=== PATIENT | male | born 1950 | race Caucasian/White ===

== ENCOUNTER → 2023-06-02 16:24 | Outpatient (REF) | payer MEDICARE, OTHER, SELFPAY | LOC: MRI 3T 16:24 | PROVIDERS: ATTENDING PHYSICIAN Physical Medicine & Rehabilitation; FAMILY PHYSICIAN Family Medicine | DX: M25.551 Pain in right hip (principal) | CPT/HCPCS: 73721 ==

== ENCOUNTER → 2023-06-03 07:56 | Outpatient (REF) | payer MEDICARE, OTHER, SELFPAY | LOC: MRI 3T 07:56 | PROVIDERS: ATTENDING PHYSICIAN Physical Medicine & Rehabilitation; FAMILY PHYSICIAN Family Medicine | DX: M54.16 Radiculopathy, lumbar region (principal) | CPT/HCPCS: 72148 ==

== ENCOUNTER → 2023-10-15 10:35 | Outpatient (REF) | payer MEDICARE, OTHER, SELFPAY | LOC: RAD 10:35 | PROVIDERS: ATTENDING PHYSICIAN Family Medicine; FAMILY PHYSICIAN Family Medicine | DX: R07.81 Pleurodynia (principal) | CPT/HCPCS: 71101 ==

== ENCOUNTER → 2023-12-16 15:42 | Outpatient (REF) | payer MEDICARE, OTHER, SELFPAY | LOC: RCS 15:42 | PROVIDERS: ATTENDING PHYSICIAN Internal Medicine Cardiovascular Disease; FAMILY PHYSICIAN Family Medicine | DX: I25.10 Atherosclerotic heart disease of native coronary artery without angina pectoris (principal); I77.810 Thoracic aortic ectasia | CPT/HCPCS: 93306 ==

== ENCOUNTER 2024-02-21 14:39 | Emergency (ER) | payer MEDICARE, OTHER, SELFPAY ==
[2024-02-21 14:44] VITALS: BP 137/72
--- NOTE | 2024-02-21 15:21 | ED.GENMED ---
History of Present Illness
General
Chief Complaint: Musculo-Skeletal Complaint
Time Seen by Provider: 02/21/24 14:55
History of Present Illness
History of Present Illness:
Patient is a 73-year-old man with history of knee replacement [place] [address] Holder presenting to the emergency department left knee pain. Patient states the past 2 days he had a dull ache and then overnight had a sharp sudden worsening pain that
is behind his knee as well as the top of the knee. He is having difficulty ambulating and having to use a walker. He is taking naproxen which has been helping. No numbness tingling. No trauma. No falls. No fevers or chills.
Past History
Past History
ED Past Medical History: None; Negative Asthma, HTN, Hypercholesterolemia or NIDDM
ED Past Surgical History: Orthopedic (L knee replacement, R and L shoulder surg,); Negative Appendectomy, Bowel resection, Cardiac or Cholecystectomy
Social History
Tobacco: Non-smoker
Alcohol: Occasional
Drug: None
Personal:
Living: with family
Employment: Employed
Family History
Family History: Other (Diverticulitis)
Phy Exam
Physical Exam
Physical Exam:
GENERAL: in no acute distress
HEENT: normocephalic, extraocular movements intact, moist oral mucosa
NECK: normal inspection
RESPIRATORY: no respiratory distress, clear to auscultation bilaterally
CARDIOVASCULAR: regular rate and rhythm
ABDOMEN/: soft, non-distended, non-tender to palpation, no rebound or guarding
EXTREMITIES: Tenderness over proximal fibula with associated swelling, no erythema, full range of motion of the knee 2+ distal pulse
NEUROLOGIC: awake and alert, moves all extremities
SKIN: warm
Course
Orders/Labs/Results
Orders:
Orders
02/21/24 14:50
CR Knee - Left 4 Or More View* Urgent
Comment:
Reason For Exam: pain
02/21/24 16:14
Knee Immobilizer Left-Treatmen ONCE
Acetaminophen [Tylenol] 1,000 mg PO NOW STA
Vital Signs
Initial and Last Documented VS:
Initial Vital Signs
Pulse Resp BP Pulse Ox
75 16 137/72 99
02/21/24 14:44 02/21/24 14:44 02/21/24 14:44 02/21/24 14:44
Last Documented Vital Signs
Pulse Resp BP Pulse Ox
75 16 137/72 99
02/21/24 14:44 02/21/24 14:44 02/21/24 14:44 02/21/24 14:44
MDM/Problems Addressed
Differential Diagnosis Includes:
Patient is a 73-year-old male with knee replacement in 2002 present to the emergency department with atraumatic left knee pain for the past 2 days. Vitals unremarkable exam does show tenderness to palpation over the proximal fibula with associated
swelling. Pulses are intact and he is otherwise neurovascularly intact. Concern for fracture or complication with the prosthetic joint. History and exam not consistent with vascular etiology or septic arthritis. Will obtain x-ray. He remains
ambulatory while here in the ED
*Critical Care Note
Total Time (30-74mins, 75-104mins- exclusive of procedures): Not Applicable
Update Note
Update Note:
X-ray per my interpretation with no acute fractures or of the prosthetic knee joint. On evaluation patient knee remains slightly swollen but no erythema or warmth to suggest septic joint. Patient placed in knee immobilizer. Strict return
precautions given. They will call [facility] office for an appointment on Friday
ED Attending Note
-
Portions of this chart may have been created with voice recognition software.� Occasional wrong word or��sound alike� substitutions may have occurred due to the inherent limitations of voice recognition software.
Discharge Plan
Departure
Patient Disposition: Home (Routine Discharge)
Date of Disposition: 02/21/24
Time of Disposition: 16:15
Patient with high blood pressure during this ER visit?: No
Discharge Problem:
Acute knee pain
Instructions: Knee Immobilizer (DC)
Prescriptions:
No Action
cetirizine [Zyrtec] 10 mg Tablet
10 mg PO HS
therapeutic multivitamin Tablet
1 tab PO DAILY
fexofenadine 180 mg Tablet
180 mg PO DAILY
ascorbic acid (vitamin C) 500 mg Tablet
500 mg PO DAILY
levothyroxine 50 mcg tablet
50 mcg PO DAILY AT 0700
naproxen sodium [Aleve] 220 mg Tablet
220 - 440 mg PO BID PRN (Reason: pain)
fluticasone propionate 50 mcg/actuation [place],Suspension
1 spray INTRANASAL BID
omega 2-izy-qin-fish oil [Fish Oil] 1,200 (144-216) mg Capsule
1 cap PO DAILY
turmeric root extract 500 mg Capsule
1,000 mg PO DAILY
Prevagen
1 cap PO DAILY
zolpidem 5 mg tablet
5 mg PO HSPRN PRN (Reason: severe insomnia)
melatonin 5 mg Tablet
5 mg PO HS PRN (Reason: insomnia)
Referrals:
Qamar Lakhani MD [Family Provider] -
Galindo Holder MD [Active] -
Interventions
Interventions:
*Risk Screen - Suicide Last Done: 02/21/24 14:44
*General Assessment Last Done: 02/21/24 14:44
*ED COVID-19 Vaccine History Last Done: 02/21/24 14:44
Discharge Date and Time
Print Language: MALAY
[2024-02-21 16:00] VITALS: BP 132/78
[2024-02-21] MEDS: TYLENOL 1000 MG PO (16:28)
== END 2024-02-21 17:20 | disposition home or self-care (01) ==
LOC: EMR 14:39
PROVIDERS: EMERGENCY PHYSICIAN Student in an Organized Health Care Education/Training Program; FAMILY PHYSICIAN Family Medicine
DX: M25.562 Pain in left knee (principal); M25.462 Effusion, left knee; R26.2 Difficulty in walking, not elsewhere classified; Z96.652 Presence of left artificial knee joint
CPT/HCPCS: 99283; 29505; 73564

== ENCOUNTER → 2024-05-30 08:05 | Outpatient (REF) | payer MEDICARE, OTHER, SELFPAY | LOC: MRI 3T 08:05 | PROVIDERS: ATTENDING PHYSICIAN Physical Medicine & Rehabilitation; FAMILY PHYSICIAN Family Medicine | DX: M76.01 Gluteal tendinitis, right hip (principal) | CPT/HCPCS: 73721 ==